=== PATIENT | female | born 1965 | race Caucasian/White ===

== ENCOUNTER 2018-02-18 12:07 | Emergency (ER) | END 2018-02-18 18:36 | disposition home or self-care (01) ==

== ENCOUNTER 2018-11-08 15:03 | Day surgery (SDC) | END 2018-11-08 20:09 | disposition home or self-care (01) ==

== ENCOUNTER 2019-01-22 09:37 | Emergency (ER) | payer MEDICARE, OTHER ==
[~2019-01-22] VITALS: Ht 154.9 cm; Wt 58.6 kg
[~2019-01-22 09:37] MED LIST: ASPI-465 PO; BUPR200T2 PO; LOVA20TA PO; NAPR-688 PO; OMEP40CA3 PO; ONDA4TAB35 PO; PREG150C PO
[2019-01-22 09:48] VITALS: Ht 154.9 cm; Wt 58.6 kg
[2019-01-22] MEDS ORDERED: morphine 4 MG/ML VIAL IV STA (11:07)
[2019-01-22] MEDS ORDERED: ONDANSETRON 4 MG INJ IV STA (11:07)
[2019-01-22] MEDS ORDERED: SOD CHLORIDE 0.9% 1,000 ML IV STA (11:07)
--- NOTE | 2019-01-22 11:29 | ERD ---
ER Documentation Chief Complaint Chief Complaint HEADCAHE SINCE LAST NIGHT , NO NEURO DEFICITS HPI This is a 53-year-old female with a history of a stroke in 2008, and hypercholesteremia presents ED with complaints of headache times 2 days. Patient localizes headache to the frontal region and describes it as a pressure. Admits to photophobia but denies any visual disturbances. Patient admits to similar headache in the past in 2008 when she had her stroke. Admits to some dizziness and some numbness along her right arm. Denies any fall or injury to account for headache. Denies blurry vision, changes in vision, weakness, fever, chills, photophobia, chest pain, shortness breath, trouble breathing and all other symptoms. no difficulty ambulating. Takes baby aspirin daily and lovastatin. ROS All systems reviewed and are negative except as per history of present illness. Medications Home Meds Active Scripts Naproxen* (Naproxen*) 500 Mg Tablet, 500 MG PO BID PRN for PAIN, #20 TAB Prov:MONSERRAT BERG DO 02/18/18 Reported Medications Ondansetron Hcl* (Zofran* ODT) 4 mg -ODT Tab.disper, 4 MG PO Q4H PRN for NAUSEA AND OR VOMITING, TAB 02/28/15 Pregabalin* (Lyrica*) 150 Mg Capsule, 150 MG PO TID, CAP 02/28/15 Bupropion Hcl* (Wellbutrin SR*) 200 Mg Tablet.sa, 400 MG PO DAILY, TAB.SA 02/28/15 Aspirin (Adult Low Dose Aspirin) 81 Mg Tablet.dr, 81 MG PO 3 TIMES A WEEK 06/19/13 Omeprazole* (Prilosec*) 40 Mg Capsule.dr, 40 MG PO DAILY 06/19/13 Lovastatin* (Mevacor*) 20 Mg Tablet, 20 MG PO DAILY 10/23/11 Allergies Allergies: Coded Allergies: No Known Drug Allergy (Verified Allergy, Mild, 06/19/13) PMhx/Soc History of Surgery: Yes (INGUINAL HERNIA BILATERAL) Anesthesia Reaction: No Hx Neurological Disorder: Yes (DEPRESSION) Hx Respiratory Disorders: No Hx Cardiac Disorders: No Hx Psychiatric Problems: No Hx Miscellaneous Medical Probl: No Hx Alcohol Use: No Hx Substance Use: No Hx Tobacco Use: No FmHx Family History: No diabetes Physical Exam Vitals Vital Signs Date Temp Pulse Resp B/P (MAP) Pulse Ox O2 O2 Flow FiO2 Time Delivery Rate 01/22/19 97.8 86 18 145/65 99 09:48 (91) Physical Exam Physical Exam Vitals signs: Reviewed by me. General: Well developed, well nourished, in no acute distress. Patient is awake and alert. Head: Normocephalic, atraumatic. 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 Normal mentation Skin: warm and dry, No rash Psych: Normal mood Result Diagram: 01/22/19 1128 01/22/19 1128 Results 24 hrs Laboratory Tests Test 01/22/19 11:28 01/22/19 12:35 White Blood Count 7.9 10^3/ul Red Blood Count 4.14 10^6/ul Hemoglobin 13.0 g/dl Hematocrit 39.1 % Mean Corpuscular Volume 94.4 fl Mean Corpuscular Hemoglobin 31.4 pg Mean Corpuscular Hemoglobin Concent 33.2 g/dl Red Cell Distribution Width 13.2 % Platelet Count 246 10^3/UL Mean Platelet Volume 9.5 fl Immature Granulocytes % 0.400 % Neutrophils % 76.7 % Lymphocytes % 17.3 % Monocytes % 4.7 % Eosinophils % 0.4 % Basophils % 0.5 % Nucleated Red Blood Cells % 0.0 /100WBC Immature Granulocytes # 0.030 10^3/ul Neutrophils # 6.1 10^3/ul Lymphocytes # 1.4 10^3/ul Monocytes # 0.4 10^3/ul Eosinophils # 0.0 10^3/ul Basophils # 0.0 10^3/ul Nucleated Red Blood Cells # 0.0 10^3/ul Prothrombin Time 12.7 Sec Prothrombin Time Ratio 1.0 INR International Normalized Ratio 0.94 Activated Partial Thromboplast Time 29.5 Sec Urine Color YELLOW Urine Clarity CLEAR Urine pH 8.0 Urine Specific [place] 1.018 Urine Ketones NEGATIVE mg/dL Urine Nitrite NEGATIVE mg/dL Urine Bilirubin NEGATIVE mg/dL Urine Urobilinogen NEGATIVE mg/dL Urine Leukocyte Esterase NEGATIVE Faith/ul Urine Hemoglobin NEGATIVE mg/dL Urine Glucose NEGATIVE mg/dL Urine Total Protein NEGATIVE mg/dl Sodium Level 140 mmol/L Potassium Level 4.0 mmol/L Chloride Level 103 mmol/L Carbon Dioxide Level 27 mmol/L Anion Gap 10 Blood Urea Nitrogen 12 mg/dl Creatinine 0.61 mg/dl Est Glomerular Filtrat Rate mL/min > 60 mL/min Glucose Level 94 mg/dl Calcium Level 9.3 mg/dl Troponin I < 0.012 ng/ml POC Beta HCG, Qualitative NEGATIVE Current Medications Medications Dose Sig/Janae Start Time Status Last (Trade) Ordered Route PRN Stop Time Admin Dose Reason Admin Sodium 1,000 ml @ Q1H STAT 01/22/19 DC 01/22/19 Chloride 1,000 mls/hr IV 11:07 01/22/19 11:26 12:06 Ondansetron 4 mg ONCE STAT 01/22/19 DC 01/22/19 HCl (Zofran IV 11:07 01/22/19 11:31 Inj) 11:08 Morphine 4 mg ONCE STAT 01/22/19 DC 01/22/19 Sulfate IV 11:07 01/22/19 11:26 (morphine) 11:08 10 mg ONCE STAT 01/22/19 DC 01/22/19 Metoclopramid IV 12:08 01/22/19 12:37 e HCl 12:09 (Reglan) Ketorolac 30 mg ONCE STAT 01/22/19 DC 01/22/19 Tromethamine IV 12:08 01/22/19 12:36 (Toradol) 12:09 25 mg ONCE STAT 01/22/19 DC 01/22/19 Diphenhydrami IV 12:08 01/22/19 12:37 ne HCl 12:09 (Benadryl) Procedures/MDM EKG, MONITORS, & DIAGNOSTIC IMAGING: EKG read by esdras: Rate/Rhythm: Regular rate and rhythm at a rate of 76 Intervals: Normal Impression: No evidence of ischemia or arrhythmia No ST elevation, no peak T waves, no widened QRS, no MD interval prolongation [place] [id number] Radiology Main Line: [phone] DIAGNOSTIC IMAGING REPORT Patient: GAIL HORTON : 1965 Age: 53 Sex: F MR #: [id number] DOS: 01/22/19 1107 Ordering MD: ROSALINDA PAULSON PA-C Location: [facility] Room/Bed: PROCEDURE: CT brain without contrast CLINICAL INDICATION: Headache TECHNIQUE: CT of the brain without contrast was performed on a multidetector CT scanner, with multiplanar reformats. One or more of the following dose reduction techniques were used: Automated exposure control, adjustment in mA and / or kV according to patient size, use of iterative reconstructive technique. CTDIvol = 40 mGy; DLP = 555 mGy-cm. DICOM images are available. COMPARISON: 02/18/2018 FINDINGS: No acute intracranial hemorrhage is identified. No extra-axial fluid collection is seen. There is no mass effect. No midline shift is identified. The ventricles and sulci are within normal limits for size and configuration. There is a chronic infarct in the right frontal lobe. A tiny chronic infarct is also visualized in the right cerebellar hemisphere. Otherwise burk-white junctions appear preserved. Calvarium and skull base are intact. Mastoid air cells and imaged paranasal sinuses grossly clear. IMPRESSION: 1. No evidence of acute intracranial pathology. 2. Chronic right frontal and tiny right cerebellar infarcts. RPTAT: VV .Stoney Bess MD, MD Date Time Electronically viewed and signed by .Stoney Bess MD, MD on 01/22/2019 11:59 .O/ CC: ROSALINDA PAULSON PA-C [id number] LAB INTERPRETATION: CBC shows no evidence of hemorrhage or infection Chemistry shows no evidence of significant electrolyte abnormalities or renal insufficiency Coagulation study showed no concerning coagulopathy Cardiac biomarkers show no evidence of acute myocardial injury or coronary ischemia UA unremarkable ER COURSE: The patient was given morphine, ns, and zofran The medication was well tolerated and the patient reports improvement in symptoms. The patient was stable throughout ED course. I kept the patient and/or family informed of laboratory and diagnostic imaging results throughout the emergency room course. The patient was promptly evaluated and a treatment plan was devised based on H&P and other data. This plan was discussed with the patient who agreed and had no further questions or concerns prior to discharge. MEDICAL DECISION MAKING: This is a 53-year-old female with a history of a stroke in 2008 and hypercholesteremia presents ED with frontal headache times 2 days. Patient is neurologically intact and has no deficits on neurologic exam. There is no signs of acute stroke on her CT scan. CT scan today shows chronic right frontal and chronic tiny right cellebellar infarcts. Upon reviewing patient's most recent CT performed on 02-18-18 which showed old infarct in the right frontal parietal region. Blood work and EKG in the emergency department are unremarkable. No signs of acute coronary syndrome with nonischemic EKG and no elevated troponin. After CT was performed showing no hemorrhagic stroke I proceeded with giving patient a headache cocktail including Benadryl, Reglan and Toradol. Patient's symptoms have resolved after receiving headache cocktail. This is likely a complex migraine as patient no longer has numbness in the right arm after receiving headache cocktail. the patient's headache is unlikely related to serious etiology. The patient does not exhibit any clinical signs or symptoms to suggest headache etiology such as subarachnoid hemorrhage, acute vertebral or carotid dissection, intracranial mass, epidural, subdural hematoma, dural venous sinus thrombosis, giant cell arteritis, CVA, encephalitis, meningitis, or pseudotumor cerebri. Patient's vitals are stable and patient can be managed w ith close outpatient follow-up. Patient was advised to follow-up with her primary care in the next 48 hours. Return to ED with any worsening symptoms. Discussed case with overseeing physician dr. sandoval and Dr. Coronado and they agrees with plan of close outpatient follow up . DISPOSITION PLAN: We discussed follow up with the patient's primary care doctor within 24 to 48 hours. Patient counseled regarding my diagnostic impression and care plan. Prior to discharge all questions answered. Pt agrees with treatment plan and understands strict return precautions. Precautionary instructions provided including instructions to return to the ER if not improving or for any worsening or changing symptoms or concerns. SPECIALIST FOLLOW UP RECOMMENDED: neurology Patient has been advised to follow up with primary care in 1-2 days. Disclaimer: Inadvertent spelling and grammatical errors are likely due to EHR/dictation software use and do not reflect on the overall quality of patient care. Also, please note that the electronic time recorded on this note does not necessarily reflect the actual time of the patient encounter. Blood Pressure Assessment: Patient's blood pressure was elevated (>120/80) but appears stable without evidence of hypertension emergency or urgency. The patient was counseled about the risks of hypertension and urged to pursue outpatient monitoring and therapy within a week with their primary care physician. Departure Diagnosis: Primary Impression: Headache Headache type: unspecified Headache chronicity pattern: unspecified pattern Intractability: not intractable Qualified Codes: R51 - Headache Condition: Stable Patient Instructions: Migraine Headache: Stages and Treatment, Self-Care for Headaches Referrals: CORONA TELLEZ MD, JAMES MILLER, CHAD M. MD NAYYAR,[facility] Additional Instructions: Patient advised to return to the ED immediately for new or worsening symptoms. Patient advised to follow up with primary care provider in the next 24-48 hours. Patient verbalized understanding and agrees with treatment plan and course of action. If patient has no primary care they may follow up with one of the community clinics listed on the following page or one of the options listed below [facility] + [facility] [address] [place] [address] or [facility] [address] [place] [address] or [facility] [address] [place] [address] ROSALINDA PAULSON PA-C Jan 22, 2019 11:29
[2019-01-22] MEDS ORDERED: KETOROLAC 30 MG INJ IV STA (12:08)
[2019-01-22] MEDS ORDERED: METOCLOPRAMIDE 10 MG INJ IV STA (12:08)
[2019-01-22] MEDS ORDERED: DIPHENHYDRAMINE 50 MG INJ IV STA (12:08)
[2019-01-22] MEDS ORDERED: ACET500C5 PO (13:08)
[2019-01-22 13:11] VITALS: BP 120/75; PULSE 71; RESP 18
== END 2019-01-22 13:15 | disposition home or self-care (01) ==
LOC: FTE 09:37
DX: R51 Headache (principal); R40.2142 Coma scale, eyes open, spontaneous, at arrival to emergency department; R40.2362 Coma scale, best motor response, obeys commands, at arrival to emergency department; R40.2252 Coma scale, best verbal response, oriented, at arrival to emergency department; R42 Dizziness and giddiness; Z79.82 Long term (current) use of aspirin
CPT/HCPCS: 36415; 70450; 80048; 81003; 81025; 84484; 85025; 85610; 85730; 93005; 96361; 96374; 96375; 99285; J1200; J1885; J2270; J2405; J2765; J7030